=== PATIENT | female | born 1960 | race Caucasian/White ===

== ENCOUNTER → 2017-01-27 | Outpatient (CLI) | payer OTHER ==
[~2017-01-27] MED LIST: AMLO10TA62 PO; HYDR25TA PO; LISI2.5T2 PO
[2017-01-27 18:58] LABS: EOSINOPHILS # (AUTO) 0.1 T/MM3 (0-0.5); EOSINOPHILS % (AUTO) 1.9 % (0-4); HCT - HEMATOCRIT 43.1 % (36-46); HGB - HEMOGLOBIN 14.3 GM/DL (12-16); IMMATURE GRANULOCYTE # (AUTO) 0.02 T/MM3 (0.00-0.03); IMMATURE GRANULOCYTE % (AUTO) 0.3 % (0.0-0.5); LYMPHOCYTES # (AUTO) 2.3 T/MM3 (1-4.8); LYMPHOCYTES % (AUTO) 33.3 % (23-45); MEAN CORPUSCULAR HGB 28.7 UUG (26-34); MEAN CORPUSCULAR HGB CONC(MCHC 33.2 GM/DL (31-37); MEAN CORPUSCULAR VOLUME 86.5 UM3 (80-100); MEAN PLATELET VOLUME 9.5 UM3 (9.4-12.4); MONOCYTES # (AUTO) 0.7 T/MM3 (0-0.8); MONOCYTES % (AUTO) 10.2 % (0-9.0); NEUTROPHILS #(AUTO)-ABSOLUTE 3.8 T/MM3 (1.8-7.7); NEUTROPHILS % (AUTO) 54.3 % (33-66); RED BLOOD COUNT 4.98 M/MM3 (4.00-5.20)
[2017-01-27 19:11] LABS: ALBUMIN 4.3 G/DL (3.5-5.0); ALBUMIN/GLOBULIN RATIO 1.3 RATIO (1.1-2.2); ALKALINE PHOSPHATASE 60 U/L (38-126); ALT (SGPT) 25 U/L (9-52); ANION GAP 9 MEQ/L (5-15); AST (SGOT) 20 U/L (14-36); BUN/CREATININE RATIO 24 RATIO (6-26); CALCIUM 9.2 MG/DL (8.4-10.2); CHLORIDE 102 MEQ/L (98-107); CO2 - CARBON DIOXIDE 31 MEQ/L (22-30); CREATININE 0.7 MG/DL (0.7-1.2); GLOMERULAR FILTRATION RATE 87; GLUCOSE 84 MG/DL (65-110); MAGNESIUM 2.3 MG/DL (1.6-2.3); POTASSIUM 3.7 MEQ/L (3.6-5); SODIUM 142 MEQ/L (134-144); TOTAL PROTEIN 7.5 G/DL (6.3-8.2)
[2017-01-27 19:41] LABS: THYROID STIM HORMONE-TSH 1.22 MIU/L (0.47-4.68)
== END ==
LOC: LAB 18:41
PROVIDERS: ATTEND Family Medicine
DX: R00.2 Palpitations (principal)
CPT/HCPCS: 36415; 80053; 83735; 84443; 84484; 85025

== ENCOUNTER 2018-05-07 07:30 | Inpatient (IN) ==
[~2018-05-07 07:30] MED LIST changes: +ACETAMINOPHEN 500 MG TABLET PO ONE; -AMLO10TA62 PO; +DEXAMETHASONE 4 MG/ML INJECTION IVP ONE; +FAMOTIDINE PB 20 MG/50 ML BAG IV ONE; -HYDR25TA PO; +LIDOCAINE 1% (10mg/ml) 2mL INJ PF SDV ID ONE; -LISI2.5T2 PO; +METOCLOPRAMIDE 10mg/2ml INJECTION IVP ONE; +ONDANSETRON 4 MG/2 ML INJECTION IVP ONE
[2018-05-07] MEDS ORDERED: EPINEPHrine PF 0.25 MG, BUPIVACAINE 0.25% PF 30 ML, KETOROLAC INJ 60 MG in NS 30 ML OPSITE ONE (08:00)
--- OUTSIDE RECORDS SUMMARY | 2018-05-07 08:03 | External Medical Summary ---
:1960 Author Organization eClinicalWorks Care Team Providers Name Role Phone Yevgeniy Lund Provider Role Unavailable Allergies No Known Allergies Problems Problem Type Condition ICD-9 Code Onset Dates Condition Status Problem Hyperlipidemia, Other and 272.4 Active unspecified Problem Mammogram Screening V76.12 Active Problem Hypertension 997.91 Active Assessment Hypertension 997.91 Active Assessment Pyuria 791.9 Active Medications No Known Medications Procedures Procedure Coding System Code Date MAGNESIUM CPT-4 95890 January 04, 2015 PHOSPHORUS CPT-4 61727 January 04, 2015 URINALYSIS CPT-4 79341 January 04, 2015 COMP PROFILE CPT-4 16724 January 04, 2015 CBC CPT-4 11704 January 04, 2015 TOTAL PROTEIN URINE CPT-4 54893 January 04, 2015 CREATININE; OTHER SOURCE CPT-4 75977 January 04, 2015 Results No Known Results Summary Purpose eClinicalWorks Submission
--- OUTSIDE RECORDS SUMMARY | 2018-05-07 08:03 | External Medical Summary ---
:1960 Author Organization eClinicalWorks Care Team Providers Name Role Phone Yevgeniy Lund Provider Role Unavailable Allergies No Known Allergies Problems Problem Type Condition ICD-9 Code Onset Dates Condition Status Problem Hyperlipidemia, Other and 272.4 Active unspecified Problem Mammogram Screening V76.12 Active Problem Hypertension 997.91 Active Medications No Known Medications Results No Known Results Summary Purpose [employer] Submission
--- OUTSIDE RECORDS SUMMARY | 2018-05-07 08:03 | External Medical Summary ---
:1960 Author Organization eClinicalWorks Care Team Providers Name Role Phone Yevgeniy Lund Provider Role Unavailable Allergies No Known Allergies Problems Problem Type Condition ICD-9 Code Onset Dates Condition Status Problem Hyperlipidemia, Other and 272.4 Active unspecified Problem Mammogram Screening V76.12 Active Problem Hypertension 997.91 Active Assessment Chronic kidney disease 585.9 Active Assessment Benign essential hypertension 401.1 Active Medications No Known Medications Procedures Procedure Coding System Code Date ABDOMINAL LIMITED CPT-4 80061 Jul 21, 2015 Results No Known Results Summary Purpose eClinicalWorks Submission
--- OUTSIDE RECORDS SUMMARY | 2018-05-07 08:03 | External Medical Summary ---
:1960 Author Organization eClinicalWorks Care Team Providers Name Role Phone Augusto Langley Provider Role Unavailable Allergies No Known Allergies Problems Problem Type Condition ICD-9 Code Onset Dates Condition Status Problem Hyperlipidemia, Other and 272.4 Active unspecified Problem Mammogram Screening V76.12 Active Problem Hypertension 997.91 Active Assessment Pre-procedural examination V72.84 Active Medications No Known Medications Procedures Procedure Coding System Code Date ORBITS FOR FB CPT-4 64642 Jun 15, 2015 Results No Known Results Summary Purpose eClinicalWorks Submission
--- OUTSIDE RECORDS SUMMARY | 2018-05-07 08:04 | External Medical Summary ---
:1960 Author Organization eClinicalWorks Care Team Providers Name Role Phone Yevgeniy Lund Provider Role Unavailable Allergies No Known Allergies Problems Problem Type Condition ICD-9 Code Onset Dates Condition Status Problem Hyperlipidemia, Other and 272.4 Active unspecified Problem Mammogram Screening V76.12 Active Problem Hypertension 997.91 Active Medications No Known Medications Results No Known Results Summary Purpose eClinicalDownstream Submission
--- OUTSIDE RECORDS SUMMARY | 2018-05-07 08:04 | External Medical Summary ---
:1960 Author Organization eClinicalWorks Care Team Providers Name Role Phone Augusto Langley Provider Role Unavailable Allergies No Known Allergies Problems Problem Type Condition ICD-9 Code Onset Dates Condition Status Problem Hyperlipidemia, Other and 272.4 Active unspecified Problem Mammogram Screening V76.12 Active Problem Hypertension 997.91 Active Assessment Low back pain radiating to right 724.2 Active leg Assessment Hip pain, left 719.45 Active Medications No Known Medications Procedures Procedure Coding System Code Date MRI LUMBAR WO CPT-4 57051 Jun 15, 2015 Results No Known Results Summary Purpose eClinical[employer] Submission
--- OUTSIDE RECORDS SUMMARY | 2018-05-07 08:04 | External Medical Summary ---
:1960 Author Organization eClinicalWorks Care Team Providers Name Role Phone Yevgeniy Lund Provider Role Unavailable Allergies No Known Allergies Problems Problem Type Condition ICD-9 Code Onset Dates Condition Status Problem Hyperlipidemia, Other and 272.4 Active unspecified Problem Mammogram Screening V76.12 Active Problem Hypertension 997.91 Active Medications No Known Medications Results No Known Results Summary Purpose eClinicalAVST Submission
--- OUTSIDE RECORDS SUMMARY | 2018-05-07 08:04 | External Medical Summary ---
:1960 Author Organization eClinicalWorks Care Team Providers Name Role Phone Yevgeniy Lund Provider Role Unavailable Allergies No Known Allergies Problems Problem Type Condition ICD-9 Code Onset Dates Condition Status Problem Hyperlipidemia, Other and 272.4 Active unspecified Problem Mammogram Screening V76.12 Active Problem Hypertension 997.91 Active Medications No Known Medications Results No Known Results Summary Purpose eClinicalschoox Submission
--- OUTSIDE RECORDS SUMMARY | 2018-05-07 08:04 | External Medical Summary ---
:1960 Author Organization eClinicalWorks Care Team Providers Name Role Phone Yevgeniy Lund Provider Role Unavailable Allergies No Known Allergies Problems Problem Type Condition ICD-9 Code Onset Dates Condition Status Problem Hyperlipidemia, Other and 272.4 Active unspecified Problem Mammogram Screening V76.12 Active Problem Hypertension 997.91 Active Assessment Pyuria 791.9 Active Assessment Hypertension 997.91 Active Medications No Known Medications Procedures Procedure Coding System Code Date VMA URINE CPT-4 65429 Dec 22, 2014 Catecholamines free CPT-4 45506 Dec 22, 2014 Results No Known Results Summary Purpose eClinicalWorks Submission
--- OUTSIDE RECORDS SUMMARY | 2018-05-07 08:04 | External Medical Summary ---
[...] hypertension 401.1 Active Medications No Known Medications Results No Known Results Summary Purpose eClinicalWorks Submission
--- OUTSIDE RECORDS SUMMARY | 2018-05-07 08:04 | External Medical Summary ---
:1960 Author Organization eClinicalWorks Care Team Providers Name Role Phone Yevgeniy Lund Provider Role Unavailable Allergies No Known Allergies Problems Problem Type Condition ICD-9 Code Onset Dates Condition Status Problem Hyperlipidemia, Other and 272.4 Active unspecified Problem Mammogram Screening V76.12 Active Problem Hypertension 997.91 Active Medications No Known Medications Results No Known Results Summary Purpose eClinicalQueralt Submission
--- OUTSIDE RECORDS SUMMARY | 2018-05-07 08:04 | External Medical Summary ---
[...] Coding System Code Date VMA URINE CPT-4 74691 Dec 22, 2014 Catecholamines free CPT-4 27170 Dec 22, 2014 Results No Known Results Summary Purpose eClinicalWorks Submission
--- OUTSIDE RECORDS SUMMARY | 2018-05-07 08:04 | External Medical Summary ---
[...] Medications Procedures Procedure Coding System Code Date RENAL DOPPLER CPT-4 53091 Jul 21, 2015 Results No Known Results Summary Purpose eClinicalWorks Submission
--- OUTSIDE RECORDS SUMMARY | 2018-05-07 08:04 | External Medical Summary ---
:1960 Author Organization eClinicalWorks Care Team Providers Name Role Phone Yevgeniy Lund Provider Role Unavailable Allergies No Known Allergies Problems Problem Type Condition ICD-9 Code Onset Dates Condition Status Problem Hyperlipidemia, Other and 272.4 Active unspecified Problem Mammogram Screening V76.12 Active Problem Hypertension 997.91 Active Medications No Known Medications Results No Known Results Summary Purpose eClinicalZkatter Submission
--- OUTSIDE RECORDS SUMMARY | 2018-05-07 08:04 | External Medical Summary ---
:1960 Author Organization eClinicalWorks Care Team Providers Name Role Phone Ashely, Yevgeniy Provider Role Unavailable Allergies, Adverse Reactions, Alerts Substance Reaction Event Type N.K.D.A. Info Not Available Non Drug Allergy Problems Problem Type Condition ICD-9 Code Onset Dates Condition Status Problem Hyperlipidemia, Other and 272.4 Active unspecified Problem Mammogram Screening V76.12 Active Problem Hypertension 997.91 Active Assessment Hypertension 997.91 Active Medications Medication Code Code Instructions Start End Status Dosage System Date Date Norvasc [facility] [id number] 10 TAKE ONE TABLET BY MOUTH EVERY DAY Hydrochlorothiazide [facility] [address]-21 25 MG Orally Nov 07, as Once a day 2014 directed Restoril [facility] [address]-85 15 MG Orally Q Dec 28, 1 capsule HS 2012 at bedtime as needed Amlodipine Besylate [facility] [id number] 10 ORAL qD 1 (one) (Due for tablet qd physical 12/23/12) Atenolol [facility] [address]-53 25 MG Orally 1 tablet bid Avapro [facility] [id number] 150 Orally 1 tablet Once a day Fluticasone [facility] [address]-14 0.05 MG/INH March 07, (one) Propionate NASAL QD 2010 spray qd (every day) (every day) Procedures Procedure Coding System Code Date BASIC CHEM 8 CPT-4 23444 Dec 12, 2014 TSH CPT-4 96271 Dec 12, 2014 CBC CPT-4 65896 Dec 12, 2014 VMA URINE CPT-4 71239 Dec 12, 2014 Catecholamines free CPT-4 19255 Dec 12, 2014 OFFICE VISITEST PT CPT-4 36073 Dec 12, 2014 Vital Signs Date/Time: Dec 12, 2014 Blood Pressure Systolic 160 mm Hg Height 64 in Weight 177.6 lbs BMI 30.48 Index Oximetry 97 % Cardiac Monitoring Heart Rate 61 /min Blood Pressure Diastolic 80 mm Hg Results No Known Results Summary Purpose eClinicalWorks Submission
--- OUTSIDE RECORDS SUMMARY | 2018-05-07 08:04 | External Medical Summary ---
:1960 Author Organization eClinicalWorks Care Team Providers Name Role Phone Yevgeniy Lund Provider Role Unavailable Allergies No Known Allergies Problems Problem Type Condition ICD-9 Code Onset Dates Condition Status Problem Hyperlipidemia, Other and 272.4 Active unspecified Problem Mammogram Screening V76.12 Active Problem Hypertension 997.91 Active Medications No Known Medications Results No Known Results Summary Purpose eClinicaltenKsolar Submission
--- OUTSIDE RECORDS SUMMARY | 2018-05-07 08:04 | External Medical Summary ---
:1960 Author Organization eClinicalWorks Care Team Providers Name Role Phone Yevgeniy Lund Provider Role Unavailable Allergies No Known Allergies Problems Problem Type Condition ICD-9 Code Onset Dates Condition Status Problem Hyperlipidemia, Other and 272.4 Active unspecified Problem Mammogram Screening V76.12 Active Problem Hypertension 997.91 Active Medications No Known Medications Results No Known Results Summary Purpose eClinicalEvery1Mobile Submission
--- OUTSIDE RECORDS SUMMARY | 2018-05-07 08:04 | External Medical Summary ---
:1960 Author Organization eClinicalWorks Care Team Providers Name Role Phone Yevgeniy Lund Provider Role Unavailable Allergies No Known Allergies Problems Problem Type Condition ICD-9 Code Onset Dates Condition Status Problem Hyperlipidemia, Other and 272.4 Active unspecified Problem Mammogram Screening V76.12 Active Problem Hypertension 997.91 Active Medications No Known Medications Results No Known Results Summary Purpose eClinicalStarburst [employer] Submission
--- OUTSIDE RECORDS SUMMARY | 2018-05-07 08:04 | External Medical Summary ---
[...] System Code Date MRI LUMBAR WO CPT-4 95935 Jun 15, 2015 Results No Known Results Summary Purpose [employer]Clinical[employer] Submission
--- OUTSIDE RECORDS SUMMARY | 2018-05-07 08:04 | External Medical Summary ---
:1960 Author Organization eClinicalWorks Care Team Providers Name Role Phone Yevgeniy Lund Provider Role Unavailable Allergies No Known Allergies Problems Problem Type Condition ICD-9 Code Onset Dates Condition Status Problem Hyperlipidemia, Other and 272.4 Active unspecified Problem Mammogram Screening V76.12 Active Problem Hypertension 997.91 Active Medications Medication Code System Code Instructions Start End Date Status Dosage Date Avapro [facility] [id number] 150 mg oral daily TAKE ONE TABLET BY MOUTH DAILY Results No Known Results Summary Purpose eClinicalWorks Submission
--- OUTSIDE RECORDS SUMMARY | 2018-05-07 08:04 | External Medical Summary ---
:1960 Author Organization eClinicalWorks Care Team Providers Name Role Phone Yevgeniy Lund Provider Role Unavailable Allergies No Known Allergies Problems Problem Type Condition ICD-9 Code Onset Dates Condition Status Problem Hyperlipidemia, Other and 272.4 Active unspecified Problem Mammogram Screening V76.12 Active Problem Hypertension 997.91 Active Medications No Known Medications Results No Known Results Summary Purpose eClinicalBurstly Submission
--- OUTSIDE RECORDS SUMMARY | 2018-05-07 08:04 | External Medical Summary ---
:1960 Author Organization eClinicalWorks Care Team Providers Name Role Phone Yevgeniy Lund Provider Role Unavailable Allergies No Known Allergies Problems Problem Type Condition ICD-9 Code Onset Dates Condition Status Problem Hyperlipidemia, Other and 272.4 Active unspecified Problem Mammogram Screening V76.12 Active Problem Hypertension 997.91 Active Medications No Known Medications Results No Known Results Summary Purpose eClinicalEndoStim Submission
--- OUTSIDE RECORDS SUMMARY | 2018-05-07 08:04 | External Medical Summary ---
:1960 Author Organization eClinicalWorks Care Team Providers Name Role Phone Yevgeniy Lund Provider Role Unavailable Allergies No Known Allergies Problems Problem Type Condition ICD-9 Code Onset Dates Condition Status Problem Hyperlipidemia, Other and 272.4 Active unspecified Problem Mammogram Screening V76.12 Active Problem Hypertension 997.91 Active Medications No Known Medications Results No Known Results Summary Purpose eClinicalAudiotoniq Submission
--- OUTSIDE RECORDS SUMMARY | 2018-05-07 08:04 | External Medical Summary ---
:1960 Author Organization eClinicalWorks Care Team Providers Name Role Phone Yevgeniy Lund Provider Role Unavailable Allergies No Known Allergies Problems Problem Type Condition ICD-9 Code Onset Dates Condition Status Problem Hyperlipidemia, Other and 272.4 Active unspecified Problem Mammogram Screening V76.12 Active Problem Hypertension 997.91 Active Medications No Known Medications Results No Known Results Summary Purpose eClinicalOffice Max Submission
--- OUTSIDE RECORDS SUMMARY | 2018-05-07 08:04 | External Medical Summary ---
:1960 Author Organization eClinicalWorks Care Team Providers Name Role Phone Yevgeniy Lund Provider Role Unavailable Allergies No Known Allergies Problems Problem Type Condition ICD-9 Code Onset Dates Condition Status Problem Hyperlipidemia, Other and 272.4 Active unspecified Problem Mammogram Screening V76.12 Active Problem Hypertension 997.91 Active Medications No Known Medications Results No Known Results Summary Purpose eClinical[employer]ist [employer] Submission
--- OUTSIDE RECORDS SUMMARY | 2018-05-07 08:04 | External Medical Summary ---
[...] Coding System Code Date VMA URINE CPT-4 32077 Dec 22, 2014 Catecholamines free CPT-4 60261 Dec 22, 2014 Results No Known Results Summary Purpose eClinicalWorks Submission
--- OUTSIDE RECORDS SUMMARY | 2018-05-07 08:04 | External Medical Summary ---
[...] Coding System Code Date VMA URINE CPT-4 25791 Dec 22, 2014 Catecholamines free CPT-4 29952 Dec 22, 2014 Results No Known Results Summary Purpose eClinicalWorks Submission
--- OUTSIDE RECORDS SUMMARY | 2018-05-07 08:04 | External Medical Summary ---
:1960 Author Organization eClinicalWorks Care Team Providers Name Role Phone Yevgeniy Lund Provider Role Unavailable Allergies No Known Allergies Problems Problem Type Condition ICD-9 Code Onset Dates Condition Status Problem Hyperlipidemia, Other and 272.4 Active unspecified Problem Mammogram Screening V76.12 Active Problem Hypertension 997.91 Active Medications No Known Medications Results No Known Results Summary Purpose eClinicalWhotever Submission
[2018-05-07] MEDS: NOZIN NASAL SWAB NAS SCH ×6 (08:59→22:21)
[2018-05-07] MEDS: LR 1,000 ML IV SCH ×2 (09:00→11:25)
[2018-05-07] MEDS ORDERED: TRANEXAMIC ACID 3,000 MG in NS 45 ML TOP ONE (09:47)
[2018-05-07] MEDS ORDERED: SALINE FLUSH 10ml SYRINGE IV PRN (09:47)
[2018-05-07] MEDS ORDERED: CEFAZOLIN 1 G INJECTION IVP ONE (10:00)
[2018-05-07] MEDS ORDERED: VANCOMYCIN 1,000 MG INJECTION ONE (10:16)
--- NOTE | 2018-05-07 10:19 | Anesthesia Preoperative Report ---
Anesthesia Preoperative Record - Date and Time Date: 05/07/18 Preoperative Diagnosis: Rt TKA Proposed Procedure: robot assist TKA NPO Since Date: 05/07/18 NPO Since Time: 07:00 Allergies/Adverse Reactions: Allergies Allergy/AdvReac Type Severity Reaction Status Date / Time lisinopril AdvReac Unknown shaky, Verified 05/07/18 08:28 lightheaded meloxicam AdvReac Unknown Hypertensio Verified 05/07/18 08:28 n - Vital Signs Vital Signs: Temperature 98.4 F 05/07/18 08:20 Pulse Rate 68 05/07/18 08:20 Respiratory Rate 24 05/07/18 08:20 Blood Pressure 114/73 05/07/18 08:20 Pulse Oximetry 97 05/07/18 08:20 Height and Weight: Height 1.6 m Weight 76.8 kg Body Mass Index 29.9 - Medications Inpatient Medications: Current Medications Lactated Ringer's (Lactated Ringers) 1,000 mls @ 50 mls/hr IV .Q20H EDWINA Last Admin: 05/07/18 09:00 Dose: 50 mls/hr Sodium Chloride (Iv Flush) 10 - 80 ml IV PRN PRN PRN Reason: Flushing Home Medications: Home Medications Medication Instructions Recorded Confirmed Type hydroCHLOROthiazide 25 mg PO DAILY #0 tab 10/31/14 05/07/18 History [Hydrochlorothiazide] Albuterol HFA Inhaler [Ventolin 2 puff INH Q4H PRN 08/13/17 05/07/18 History Hfa 90 mcg/actuation] Irbesartan [Avapro] 150 mg PO PRN PRN 08/13/17 05/07/18 History Potassium Chloride 10 meq PO DAILY 08/13/17 05/07/18 History Temazepam [Restoril] 15 mg PO HS PRN 09/05/17 05/07/18 History efinaconazole 10 % topical 1 applicatio TOP DAILY 01/30/18 05/07/18 History solution with applicator Amlodipine [Norvasc] 10 mg PO DAILY 04/30/18 05/07/18 History Benzonatate [Benzonatate] 100 mg PO TID PRN 04/30/18 05/07/18 History Ascorbic Acid [Vitamin C] 1,000 mg PO DAILY 05/07/18 05/07/18 History Calcium 600 + D [Caltrate + D] 1 tab PO BID 05/07/18 05/07/18 History Cholecalciferol (Vitamin D3) 1 tab PO DAILY 05/07/18 05/07/18 History [Vitamin D3] Magnesium Citrate 300 mg PO DAILY 05/07/18 05/07/18 History Is Patient on Beta Iram?: No - Medical History Respiratory: Reports: Bronchitis DENIES: Sleep Apnea Cardiovascular: Reports: Heart Murmur, Hypertension, Valvular Heart Disease (MVP ), Other ("PRESSURE"-WENT TO ER-[facility] 2016-NEG HEART) Gastrointestional: DENIES: Gastroesophageal Reflux Disease Neuro/Musculoskeletal: Reports: Other (KNEE PAIN; osteopenia) Renal/Endocrine: Reports: Other (gestational diabetes) Other History: Reports: Anesthesia Reactions (n/v) - Surgical History HEENT Surgeries: Reports: Eye Surgery (upper eyelid blepharolplasty), Tonsillectomy (age 46) Cardiac Surgeries/Treatments: Reports: Cardiac Catheterization GI Surgery/Treatments: Reports: Colonoscopy, Other (CONSTIPATION) Musculoskeletal Surgery/Tx: Reports: Knee Arthroscopy (Rt knee meniscus; Lt knee scope x1 and ACL Lt knee), Total Knee Replacement (L KNEE X 2) Reproductive Surgery/Treatment: Reports: Section, Endometrial Ablation , Laparoscopy, Tubal Ligation Hx Family Anesthesia Reaction: No - Social History Smoking Status: Never smoker Hx Chewing Tobacco Use: No Second Hand Exposure: No Substance Use Type: does not use Alcohol Intake Frequency: holidays/special occasions only - Pertinent Findings Laboratory: CBC and BMP 05/07/18 08:45 BMP 05/07/18 08:45 Sodium 146 Potassium 3.3 L Chloride 106 Carbon Dioxide 28 BUN 17.0 Creatinine 0.6 L Glucose 98 Calcium 9.2 EKG: Sinus Rhythm - Physical Exam Respiratory Exam: Present: lungs clear Cardiovascular Exam: Present: regular rate and rhythm, systolic murmur - Airway Assessment Mallampati Score: II TMD: 3 Fingerbreadths Neck Extension: good Teeth: chipped teeth/crowns Overall Assessment: no airway concerns - ASA ASA Score: 2 - Plan Anesthesia: General TIVA Regional/Trunk Block: Spinal Peripheral Nerve Block: Adductor Canal-Right - Discussion Discussion: Discussed risks/options/alternatives of anesthesia and questions answered. Patient consents. Nursing pain assessment noted. Present for Discussion: spouse Attestation Statement: Prior to the delivery of any anesthetic medication, I examined the patient, developed the plan, obtained the patient's consent and discussed the risk and benefits of the procedure with the patient/guardian. - Additional Information Seen by Anesthesia: Yes
[2018-05-07] MEDS ORDERED: VANCOMYCIN 1,000 MG INJECTION IAR ONE (10:40)
[2018-05-07] MEDS ORDERED: MIDAZOLAM 2mg/2ml INJECTION ONE (10:45)
[2018-05-07] MEDS ORDERED: LIDOCAINE 2% (100mg/5mL) 5ml PF SDV ONE (10:45)
[2018-05-07] MEDS ORDERED: BUPIVACAINE 0.75%/DEXTROSE 8.5% SPINAL 2 ML AMPULE IJ ONE (10:45)
[2018-05-07] MEDS ORDERED: PROPOFOL 500 MG/50 ML VIAL ONE ×2 (10:53→11:42)
--- NOTE | 2018-05-07 11:59 | Operative Note ---
- Procedure Preoperative Diagnosis: Right knee primary degenerative joint disease Postoperative Diagnosis: Same as preoperative diagnosis. Surgeon: Lisa Riley MD Production Staff Worker: Tiera Hamlin Complications: None. Anesthesia: Spinal. Estimated Blood Loss: See Anesthesia Record. Fluids: Please see Anesthesia Record. Description of Procedure: Mrs. Belrtan and her right knee were identified and marked in the preoperative holding area. She was brought back to the operating suite. Spinal anesthetic was administered and she was placed supine on the operating table. The right lower extremity was prepped and draped in my normal sterile fashion. Timeout was performed. The [employer] robotic arm was used during the surgery. She had a correctable valgus deformity with 5 hyperextension. A standard anterior midline incision followed by medial parapatellar arthrotomy was performed. Anterior fat pad and meniscus were removed. The patella was everted and a patellar osteotomy was performed leaving 12 mm of bone. Tibial and femoral arrays and checkpoints were placed both within the original incision. The bone was then registered with the [employer] robot. Osteophytes were removed and gaps were captured both 90 and 0 with correction. The knee was balanced by placing 1 of valgus in the femur. I balanced with 17 mm gaps in extension and 18 mm gaps in flexion given her hyperextension deformity. The [employer] robotic arm was then used to assist with the bone cuts. Posterior osteophytes and remaining meniscus were removed. Trial components were placed. We used a 3 femur and a 3 tibia with a 11 mm spacer and a 29 patella. She tracked well and was well balanced throughout range of motion. The tibia was stamped at the proper rotation. Trial components fit well and bone quality was adequate so we proceeded with press-fit components. Components were press-fit into place. A final spacer was also placed. The knee was ranged one more time to ensure good stability, balance and patellar tracking. 3 grams of TXA was allowed to sit in the wound for 5 minutes and then suctioned out. 1 g of vancomycin powder was then placed into the knee joint. The capsulotomy was then closed with #1 Vicryl. I then left my social science research assistant to close the subcutaneous tissue with 2-0 Vicryl and a running 0 V-lock. Running 4-0 Monocryl will be used in the subcuticular layer. After drapes are removed patient will be taken to recovery room under the care of anesthesia.
[2018-05-07] MEDS ORDERED: ROPIVACAINE 0.5% (5mg/ml) 30ml INJ ONE (12:16)
[2018-05-07] MEDS ORDERED: EPHEDRINE 50mg/ml INJECTION ONE (12:21)
--- NOTE | 2018-05-07 12:41 | Anesthesia Procedure Note ---
Peripheral Nerve Blockade - Procedure Physician: Marcell Riley MD Date: 05/07/18 Surgical Procedure: right TKA Discussion: Discussed risks/options/alternatives of anesthesia and questions answered. Patient consents. Nursing pain assessment noted. Block Start: 12:36 Block Stop: 12:39 Block Employed: Adductor Canal-Right Indication: Post-Operative Pain Approach: Right Side Confirmed Position: Supine Patient: Consent, Risks/Benefits Discussed, Informed, Post Block Act. Discussed IV Sedation: No Initial Vital Signs: Temperature 98.4 F 05/07/18 08:20 Temperature Source Oral 05/07/18 08:20 Pulse Rate 68 05/07/18 08:20 Respiratory Rate 24 05/07/18 08:20 Blood Pressure 114/73 05/07/18 08:20 Blood Pressure Mean 86 05/07/18 08:20 Blood Pressure Position Sitting 05/07/18 08:20 Pulse Oximetry 97 05/07/18 08:20 Oxygen Delivery Method 05/07/18 08:20 Post Vital Signs: Temperature 97 F 05/07/18 12:28 Pulse Rate 92 05/07/18 12:28 Respiratory Rate 18 05/07/18 12:28 Blood Pressure 142/67 H 05/07/18 12:28 Pulse Oximetry 95 05/07/18 12:28 Initial Pain Pain Score: 0 Post Block Pain Score: 0 Prep: Chlorhexadine/ETOH Ultrasound Used?: Yes - Injectate Ropivacaine (%): 0.5 Ropivacaine (mL): 20 Was Epi 1:200,000 Used?: No Injection: Injection made incrementally with constant monitoring and aspiration every ml
--- NOTE | 2018-05-07 13:04 | XRay Report ---
Indication: postoperative image PROCEDURE: XR knee RT 2V: Encounter: Initial Comparison: April 20, 2018 Findings: Postoperative changes of right total knee replacement are seen. There is expected postoperative subcutaneous gas. No evidence of hardware failure or acute fracture. No retained radiopaque surgical instruments or sponges. Overlying material causing artifact. Impression: New right total knee prosthesis without evidence of immediate complication. .
--- NOTE | 2018-05-07 13:14 | Anesthesia Postoperative Note ---
- Date and Time Date: 05/07/18 Time: 13:13 - Status Patient Participated in Evaluation: Patient Participated in Person Vital Signs: Temperature 97 F 05/07/18 12:28 Pulse Rate 79 05/07/18 12:55 Respiratory Rate 19 05/07/18 12:55 Blood Pressure 111/56 05/07/18 12:55 Pulse Oximetry 95 05/07/18 12:55 Respiratory Function: Airway Patent Cardiovascular Function: Regular Pulse EKG: Sinus Rhythm Mental Status: Alert and Oriented Pain Intensity: 0 Hydration: Taking PO Fluids Complications During Recover: None Apparent - Follow-Up Instructions Instructions: Per Surgeon
[2018-05-07] MEDS ORDERED: BENZONATATE 100 MG CAPSULE PO PRN (13:17)
[2018-05-07] MEDS ORDERED: NOZIN NASAL SWAB NAS ONE (13:17)
[2018-05-07] MEDS ORDERED: DEXAMETHASONE 20 MG/5 ML INJECTION IVP ONE (13:17)
[2018-05-07] MEDS ORDERED: DiphenhydrAMINE 25 MG CAPSULE PO PRN (13:17)
[2018-05-07] MEDS ORDERED: LORazepam 1 MG TABLET PO PRN (13:17)
[2018-05-07] MEDS ORDERED: TEMAZEPAM 15 MG CAPSULE PO PRN (13:17)
[2018-05-07] MEDS ORDERED: DiphenhydrAMINE 50 MG/ML INJECTION IVP PRN (13:17)
[2018-05-07] MEDS ORDERED: ONDANSETRON 4 MG/2 ML INJECTION IVP PRN (13:17)
[2018-05-07] MEDS ORDERED: ALBUTEROL 2.5mg/3ml (0.083%) NEB AEROSOL PRN (13:17)
[2018-05-07] MEDS: ACETAMINOPHEN 325 MG TABLET PO SCH ×3 (13:31→20:44)
[2018-05-07] MEDS: NS 1,000 ML IV SCH (13:32)
[2018-05-07] MEDS: Oxycodone *IR* 5 MG TABLET PO PRN ×3 (15:27→20:44)
[2018-05-07] MEDS: CEFAZOLIN 1 G in NS 100 ML IV SCH (18:43)
[2018-05-07] MEDS: NAPROXEN 220 MG TABLET PO SCH (18:43)
[2018-05-07] MEDS: SENNOSIDES 8.6 MG TABLET PO SCH (20:44)
[2018-05-07] MEDS: DOCUSATE SODIUM 100 MG CAPSULE PO SCH (20:44)
[2018-05-07] MEDS: ASPIRIN *EC* 81 MG TABLET PO SCH (20:44)
[2018-05-08] MEDS: NS 1,000 ML IV SCH ×2 (00:51→03:08)
[2018-05-08] MEDS: Oxycodone *IR* 5 MG TABLET PO PRN ×6 (01:49→23:11)
[2018-05-08] MEDS: CEFAZOLIN 1 G in NS 100 ML IV SCH (03:08)
[2018-05-08] MEDS: NOZIN NASAL SWAB NAS SCH ×4 (05:03→21:03)
--- NOTE | 2018-05-08 07:43 | Orthopedic Progress Note ---
Date: Date: 05/08/18 Time: 739 Subjective/Severity of Illness: Mrs. Beltran is lying in bed this morning during rounds. States she wasn't able to sleep well last night due to noise. Pain has been well controlled with Roxicodone. Has been up ambulating. Denies CP, SOA, nausea, tolerating PO well. Hgb 11.8 Hypokalemia 3.3 yesterday, replaced K+3.8 today. Orthopedic Exam Vital signs: Temperature 97.6 F 05/08/18 04:24 Pulse Rate 77 05/08/18 04:24 Respiratory Rate 16 05/08/18 04:24 Blood Pressure 141/76 H 05/08/18 04:24 Pulse Oximetry 94 05/08/18 04:24 - Constitutional General Appearance: Present: alert, orientated x3, cooperative, no acute distress, well developed, well nourished - Respiratory Exam Present: CTA bilaterally, non-labored - Cardiovascular Exam Present: Regular Rate/Rhythm, pedal pulses intact - Abdominal Exam Present: soft - Extremities Exam Present: pulses intact. Absent: calf tenderness - Dressing Dressing: dry, intact, no drainage Comments: mepilex right knee - Integumentary Exam Present: pink, warm, dry - Neurological Exam Present: intact to light touch, no deficits - Psychiatric Exam Present: alert, oriented - Labs Result Diagrams: 05/08/18 04:10 05/08/18 04:10 Abnormal lab results 05/07/18 05/08/18 05/08/18 Range/Units 08:45 04:10 04:10 Hgb 11.8 L (12-16) GM/DL Potassium 3.3 L (3.6-5) MEQ/L Chloride 108 H (98-107) MEQ/L Creatinine 0.6 L 0.5 L (0.7-1.2) mg/dL BUN/Creatinine Ratio 28 H 28 H (6-26) RATIO Glucose 121 H (65-110) MG/DL Calculated Osmolality 283 H (261-280) MOSM/KG H & H 05/08/18 Range/Units 04:10 Hgb 11.8 L (12-16) GM/DL Hct 36.0 (36-46) % Orthopedic Assessment and Plan (1) Status post right knee replacement Status: Acute Assessment and Plan: Current anti-coagulation protocol with ASA 81mg BID for VTE prophylaxis. SCD's for added protection. PT/OT services to improve independent function. Discharge Planning per Case Management. Patient seen later in the day and reports pain 10/10 with PT. Will give Toradol 15mg IV x1 and follow up with pain this afternoon. She requests to be discharged , recommended improved pain management before determining discharge. Patient states understanding. - Anticoagulation Therapy Anticoagulation: ASA 81 mg PO BID x6 weeks - Additional Diagnoses Hypertension: stable, resume medications Anemia: no intervention required, patient was asymptomatic, labs monitored Hospital Course Summary Disclaimer: The visit summary below is not to be considered part of the above Progress Note.
--- NOTE | 2018-05-08 07:45 | Discharge Summary ---
Letter to PCP Cover Letter: This is a short letter to update you on your patient's status and to ask for your assistance in managing their postoperative anticoagulation needs. Lupe Beltran underwent an elective total joint arthroplasty by Dr. Riley. Aspirin 81mg therapy was initiated for DVT prophylaxis. Aspirin should be given BID for six weeks postoperatively. Details for their hospitalization can be found in the discharge summary attached. The patient is scheduled to see you one week after surgery for a post-operative check. I hope you find the discharge summary informative and helpful as you resume care of your patient after their surgery. If our office can be of any assistance, please feel free to contact us any time. Orthopedic Discharge Info Date of admission: 05/07/18 07:56 Anticipated date of discharge: 05/08/18 Primary care physician: Philly Weston MD Attending Physician: Marcell Riley MD Consults: 05/07/18 08:17 Consult to Anesthesiology [CONS] Routine Reason For Exam: Preoperative Assessment 05/07/18 13:17 Case Management Consult [CONS] Routine Reason For Exam: Discharge Planning DME-Walker [CONS] Routine Height: 5 ft 3 in Weight: 76.8 kg Total Joint Outpatient Therapy [CONS] Routine Comment: Remove dressing in 2 weeks - Discharge Diagnosis (1) Status post right knee replacement Status: Acute - Laboratory Result Diagrams: 05/09/18 05:06 05/09/18 14:05 Laboratory: Abnormal lab results 05/07/18 05/08/18 05/08/18 Range/Units 08:45 04:10 04:10 Hgb 11.8 L (12-16) GM/DL Potassium 3.3 L (3.6-5) MEQ/L Chloride 108 H (98-107) MEQ/L Creatinine 0.6 L 0.5 L (0.7-1.2) mg/dL BUN/Creatinine Ratio 28 H 28 H (6-26) RATIO Glucose 121 H (65-110) MG/DL Calculated Osmolality 283 H (261-280) MOSM/KG H & H 05/08/18 Range/Units 04:10 Hgb 11.8 L (12-16) GM/DL Hct 36.0 (36-46) % Orthopedic Discharge HPI - HPI Comments This patient was admitted for elective surgical tx of end stage degenerative joint disease that failed to respond to conservative treatment. Further details of this is found in the admission H&P. Orthopedic Hospital Course Hospital course: 05/08/18 07:44 After appropriate preoperative clearance and signing of operative consent, the patient was given IV antibiotics, according to orthopedic protocol. The patient was taken to the operating room and underwent elective joint arthroplasty. Following surgery, antibiotics were discontinued less than 24 hours according to joint protocol. Appropriate anticoagulants were initiated and SCDs added for DVT prevention. The dressing was clean, dry, and intact. Pain control was obtained via multimodal approach. Bowel motivation addressed with scheduled and PRN medications. Early mobilization was initiated through PT services. Discharge arrangements made by a collaborative effort between the patient and Case Management. HTN- home medication resumed, BP well controlled throughout hospital stay Anemia- no acute intervention required. Hgb 11.8. Hypokalemia- 3.2, K+ replaced and home K+ increased to 20meQ daily. Pain management improved with Percocet. Gabapentin 100mg at HS x 3 days, then BID x 3 days, then TID for CRPS. Schedule medical follow up and potassium redraw with PCP in 2-3 days . Follow-up is scheduled in 2-3 weeks. Discharge instructions given by orthopedic providers and nursing staff at discharge. Discharge condition was good. 05/09/18 15:21 Care extended to > 2 midnight stays?: Yes Discharge Plan - Med Rec/Dispo Referrals/Follow Up: Philly Weston MD [Primary Care Provider] - 05/14/18 3:00 pm Dusty Gordon PA [Physician Wind Technician] - 06/01/18 10:15 am E[facility]manasa Instructions: [facility] Postop Instructions Additional Instructions: [facility] ON 05/11/2018 AT 4:10PM FOR PHYSICAL THERAPY [facility]. PHONE [phone] Prescriptions: New RX: Aspirin *EC* [Ecotrin] 81 mg PO BID tab RX: Acetaminophen [Tylenol] 650 mg PO QID tab RX: Docusate Sodium [Colace] 100 mg PO BID cap RX: Milk of Magnesia [Mom] 30 ml PO DAILY udc RX: Oxycodone *IR* [Roxicodone *Ir*] 5 - 15 mg PO Q3H PRN #60 tab PRN Reason: Breakthrough Pain RX: Gabapentin [Neurontin] 1 cap PO HS #84 cap RX: Naproxen [Aleve (Naproxen) 220 mg] 440 mg PO BIDWM tab RX: Oxycodone/Apap 7.5/325 [Percocet 7.5/325] 1 - 2 tab PO Q6H PRN #60 tab PRN Reason: Pain Continue RX: Albuterol HFA Inhaler [Ventolin Hfa 90 mcg/actuation] 2 puff INH Q4H PRN PRN Reason: Wheezing RX: Potassium Chloride 10 meq PO DAILY RX: Temazepam [Restoril] 15 mg PO HS PRN PRN Reason: Insomnia RX: Amlodipine [Norvasc] 10 mg PO DAILY RX: Ascorbic Acid [Vitamin C] 1,000 mg PO DAILY RX: Magnesium Citrate 300 mg PO DAILY RX: Irbesartan [Avapro] 150 mg PO PRN PRN PRN Reason: Hypertension RX: Benzonatate 100 mg PO TID PRN PRN Reason: Cough RX: Calcium 600 + D [Caltrate + D] 1 tab PO BID RX: Cholecalciferol (Vitamin D3) [Vitamin D3] 1 tab PO DAILY efinaconazole 10 % topical solution with applicator 1 applicatio TOP DAILY Discontinued RX: hydroCHLOROthiazide [Hydrochlorothiazide] 25 mg PO DAILY #0 tab - Disposition 01 Discharged Home, Self-Care - Dismissal Complete Discharge Instructions are:: Complete
[2018-05-08] MEDS: NAPROXEN 220 MG TABLET PO SCH ×2 (08:03→17:27)
[2018-05-08] MEDS ORDERED: MAGNESIUM CITRATE 300 MG PO SCH (09:00)
[2018-05-08] MEDS: ASPIRIN *EC* 81 MG TABLET PO SCH ×2 (09:12→20:00)
[2018-05-08] MEDS: IRBESARTAN 150 MG TABLET PO SCH (09:12)
[2018-05-08] MEDS: DOCUSATE SODIUM 100 MG CAPSULE PO SCH ×2 (09:13→20:00)
[2018-05-08] MEDS: AMLODIPINE 10 MG TABLET PO SCH (09:13)
[2018-05-08] MEDS: MAGNESIUM OXIDE 400 MG TABLET PO SCH (09:13)
[2018-05-08] MEDS: ACETAMINOPHEN 325 MG TABLET PO SCH ×4 (09:19→20:00)
[2018-05-08] MEDS: POLYETHYL GLYCOL 3350 17gm PACKET PO SCH (12:20)
[2018-05-08] MEDS ORDERED: SENNOSIDES 8.6 MG TABLET PO PRN (12:28)
[2018-05-08] MEDS ORDERED: KETOROLAC 15 MG/ML INJECTION IVP ONE (13:16)
[2018-05-08] MEDS: SENNOSIDES 8.6 MG TABLET PO SCH (20:00)
[2018-05-09] MEDS: Oxycodone *IR* 5 MG TABLET PO PRN ×3 (01:58→08:19)
[2018-05-09] MEDS ORDERED: KETOROLAC 15 MG/ML INJECTION IVP ONE (03:11)
[2018-05-09] MEDS: NOZIN NASAL SWAB NAS SCH ×3 (04:58→13:17)
[2018-05-09] MEDS: IRBESARTAN 150 MG TABLET PO SCH (08:16)
[2018-05-09] MEDS: MAGNESIUM OXIDE 400 MG TABLET PO SCH (08:17)
[2018-05-09] MEDS: AMLODIPINE 10 MG TABLET PO SCH (08:17)
[2018-05-09] MEDS: NAPROXEN 220 MG TABLET PO SCH (08:18)
[2018-05-09] MEDS: ACETAMINOPHEN 325 MG TABLET PO SCH ×2 (08:18→13:15)
[2018-05-09] MEDS: DOCUSATE SODIUM 100 MG CAPSULE PO SCH (08:18)
[2018-05-09] MEDS: ASPIRIN *EC* 81 MG TABLET PO SCH (08:19)
[2018-05-09] MEDS: POLYETHYL GLYCOL 3350 17gm PACKET PO SCH (08:19)
[2018-05-09 08:20] VITALS: RESP 16
--- NOTE | 2018-05-09 09:40 | Orthopedic Progress Note ---
Date: Date: 05/09/18 Time: 935 Subjective/Severity of Illness: Mrs. Beltran is sitting up in bed this morning. Reports she continues to require Roxicodone 15mg q3hr for pain, and feels she could use additional dose before it is due. She was able to walk the halls last night, states was painful but tolerable. She would like to be discharged, feel she would be able to sleep better at home. Her biggest complaint is difficulty getting comfortable at night and waking up with pain. K+ 3.2 this morning. Orthopedic Exam Vital signs: Temperature 97.6 F 05/08/18 04:24 Pulse Rate 77 05/08/18 04:24 Respiratory Rate 16 05/08/18 04:24 Blood Pressure 141/76 H 05/08/18 04:24 Pulse Oximetry 94 05/08/18 04:24 - Constitutional General Appearance: Present: alert, orientated x3, cooperative, no acute distress, well developed, well nourished - Respiratory Exam Present: CTA bilaterally, non-labored - Cardiovascular Exam Present: Regular Rate/Rhythm, pedal pulses intact - Abdominal Exam Present: soft - Extremities Exam Present: pulses intact. Absent: calf tenderness - Dressing Dressing: dry, intact, no drainage - Integumentary Exam Present: pink, warm, dry - Neurological Exam Present: intact to light touch, no deficits - Psychiatric Exam Present: alert, oriented - Labs Result Diagrams: 05/09/18 05:06 05/09/18 05:06 Abnormal lab results 05/09/18 Range/Units 05:06 Potassium 3.2 L (3.6-5) MEQ/L Carbon Dioxide 33 H (22-30) MEQ/L Creatinine 0.5 L (0.7-1.2) mg/dL H & H 05/08/18 05/09/18 Range/Units 04:10 05:06 Hgb 11.8 L 12.3 (12-16) GM/DL Hct 36.0 37.3 (36-46) % Orthopedic Assessment and Plan (1) Status post right knee replacement Status: Acute Assessment and Plan: Current anti-coagulation protocol with ASA 81mg BID for VTE prophylaxis. SCD's for added protection. PT/OT services to improve independent function. Discharge Planning per Case Management. Repeat xray of right knee- TKA components in good alignment, no fractures or other abnormalities noted. Pain management- will start patient on Gabapentin 100mg at HS and titrate accordingly for CRPS. Hypokalemia- 3.2 this morning, will replace and recheck prior to discharge today. - Anticoagulation Therapy Anticoagulation: ASA 81 mg PO BID x6 weeks - Additional Diagnoses Hypertension: stable, resume medications Anemia: no intervention required, patient was asymptomatic, labs monitored Hospital Course Summary Disclaimer: The visit summary below is not to be considered part of the above Progress Note.
[2018-05-09] MEDS ORDERED: OXYCODONE/APAP 7.5 MG/325 MG TABLET PO PRN (10:17)
[2018-05-09 15:30] VITALS: BP 123/65; PULSE 72; TEMP 98.3; O2SAT 90
[2018-05-09] MEDS ORDERED: BISACODYL 10 MG SUPPOSITORY RECTALLY SCH (20:00)
[2018-05-09] MEDS ORDERED: GABAPENTIN 100 MG CAPSULE PO SCH (21:00)
--- NOTE | 2018-05-10 10:42 | XRay Report ---
Indication: INCREASED PAIN PROCEDURE: XR knee RT 2V: Encounter: Initial Comparison: May 07, 2018 Findings: There is no acute fracture, dislocation or malalignment identified. Total knee prosthesis appears intact without evidence of loosening or failure. Impression: No acute osseous abnormality. .
== END 2018-05-09 16:11 | disposition home or self-care (01) | DRG 470 ==
LOC: NMC.PERIOP 07:56 → SRG 13:08
PROVIDERS: ADMIT Orthopaedic Surgery; ATTEND Orthopaedic Surgery